=== PATIENT | female | born 1985 | race African-American/Black ===

== ENCOUNTER 2018-05-02 02:18 | Emergency (ER) | payer SELFPAY ==
[~2018-05-02] VITALS: Ht 154.9 cm; Wt 72.6 kg
[2018-05-02] MEDS ORDERED: ALBUTEROL SULFATE 2.5 MG/3 ML NEBU. NEB ONE ×2 (02:45→03:30)
--- NOTE | 2018-05-02 03:17 | RAD ---
Indication:SOA TECHNIQUE:Portable AP chest X-ray COMPARISON:None FINDINGS: Heart is normal in size. Mild bilateral peribronchial streaky opacities. No focal consolidation. No pneumothorax or pleural effusion. Visualized bony thorax within normal limits. IMPRESSION: Findings of mild bronchitis. Electronically signed by: Ted Lopez DO (05/02/2018 3:13 AM) [id number]
[2018-05-02] MEDS ORDERED: methylPREDNISolone SOD SUCC PF 125 MG/2 ML VIAL. IM ONE (03:30)
[2018-05-02 03:35] LABS: INFLUENZA A PATIENT NEGATIVE (NEGATIVE); INFLUENZA B PATIENT NEGATIVE (NEGATIVE)
[2018-05-02] MEDS ORDERED: ALBU2.5V8 INH (04:28)
[2018-05-02] MEDS ORDERED: PRED50TA PO (04:28)
[2018-05-02] MEDS ORDERED: AZIT250T PO (04:29)
--- NOTE | 2018-05-02 04:29 | PHYS DOC ---
Past Medical History Past Medical History: Asthma, Other Past Surgical History: Tubal ligation Alcohol Use: None Drug Use: Cocaine, Marijuana, Other Social History Narrative: "crack" Adult General Chief Complaint Chief Complaint: ASTHMA HPI HPI 32-year-old female presents with chief complaint of cough congestion. Patient states symptoms been ongoing going on and off for the last 3 weeks. On exam patient with diffuse wheezing. She denies any fevers or chills. Patient states she has a cough with some sputum production. She has associated runny stuffy nose. Review of Systems Review of Systems Constitutional: Denies fever or chills [] Eyes: Denies change in visual acuity, redness, or eye pain [] HENT: Positive nasal congestion Respiratory: Positive cough or shortness of breath and wheezing [] Cardiovascular: No additional information not addressed in HPI [] GI: Denies abdominal pain, nausea, vomiting, bloody stools or diarrhea [] : Denies dysuria or hematuria [] Musculoskeletal: Denies back pain or joint pain [] Integument: Denies rash or skin lesions [] Neurologic: Denies headache, focal weakness or sensory changes [] Endocrine: Denies polyuria or polydipsia [] All other systems were reviewed and found to be within normal limits, except as documented in this note. Current Medications Current Medications Current Medications Medications (Trade) Dose Ordered Sig/Dmitri Start Time Stop Time Status Last Admin Dose Admin Albuterol Sulfate (Ventolin Neb Soln) 2.5 mg 1X ONCE 05/02/18 03:30 05/02/18 03:31 DC 05/02/18 03:40 2.5 MG Methylprednisolone Sodium Succinate (SOLU-Medrol 125MG VIAL) 125 mg 1X ONCE 05/02/18 03:30 05/02/18 03:31 DC 05/02/18 03:52 125 MG Allergies Allergies Allergies Coded Allergies Type Severity Reaction Last Updated Verified No Known Drug Allergies 05/02/18 No Physical Exam Physical Exam Constitutional: Well developed, well nourished, no acute distress, non-toxic appearance. [] HENT: Normocephalic, atraumatic, bilateral external ears normal, oropharynx moist, no oral exudates, nose normal. [] Eyes: PERRLA, EOMI, conjunctiva normal, no discharge. [] Neck: Normal range of motion, no tenderness, supple, no stridor. [] Cardiovascular:Heart rate regular rhythm, no murmur [] Lungs & Thorax: Bilateral wheezing sounds Abdomen: Bowel sounds normal, soft, no tenderness, no masses, no pulsatile masses. [] Skin: Warm, dry, no erythema, no rash. [] Back: No tenderness, no CVA tenderness. [] Extremities: No tenderness, no cyanosis, no clubbing, ROM intact, no edema. [] Neurologic: Alert and oriented X 3, normal motor function, normal sensory function, no focal deficits noted. [] Psychologic: Affect normal, judgement normal, mood normal. [] Current Patient Data Vital Signs Vital Signs Date Time Temp Pulse Resp B/P (MAP) Pulse Ox O2 Delivery O2 Flow Rate FiO2 05/02/18 03:40 99 Room Air 05/02/18 02:20 98.4 95 26 117/87 (97) 98.4 Lab Values Laboratory Tests Test 05/02/18 03:00 Influenza Type A Antigen Negative (NEGATIVE) Influenza Type B Antigen Negative (NEGATIVE) EKG EKG [] Radiology/Procedures Radiology/Procedures [] Impressions: Chest x-ray no focal infiltrate Course & Med Decision Making Course & Med Decision Making Pertinent Labs and Imaging studies reviewed. (See chart for details) [] Dragon Disclaimer Dragon Disclaimer This electronic medical record was generated, in whole or in part, using a voice recognition dictation system. Departure Departure Impression: Primary Impression: Asthma exacerbation Disposition: 01 HOME, SELF-CARE Condition: STABLE Referrals: NO PCP (PCP) Patient Instructions: Asthma, Adult Scripts Azithromycin (ZITHROMAX) 250 Mg Tablet 250 MG PO DAILY for ANTI-BIOTIC for 5 Days, #6 TAB 0 Refills Prov: EMILY FIERRO DO 05/02/18 Albuterol Sulfate (Proair Hfa) 8.5 Gm Hfa.aer.ad 1 PUFF INH PRN Q6HRS PRN for SHORTNESS OF BREATH, #1 INHALER Prov: EMILY FIERRO DO 05/02/18 Prednisone (PREDNISONE) 50 Mg Tablet 1 TAB PO DAILY, #5 TAB Prov: EMILY FIERRO DO 05/02/18 Problem Qualifiers Primary Impression: Asthma exacerbation Asthma severity: unspecified severity Asthma persistence: unspecified Qualified Codes: J45.901 - Unspecified asthma with (acute) exacerbation EMILY FIERRO DO May 02, 2018 04:29
[2018-05-02 04:36] VITALS: BP 116/57
== END 2018-05-02 04:38 | disposition home or self-care (01) ==
LOC: ER 02:18
DX: J45.901 Unspecified asthma with (acute) exacerbation (principal); Z98.51 Tubal ligation status
CPT/HCPCS: 71045; 87804; 94640; 96372; 99284; J2930; J7613